=== PATIENT | female | born 1985 | race Hispanic/Latino ===

== ENCOUNTER 2017-08-28 20:32 | Inpatient (IN) | payer OTHER ==
[2017-09-17] MEDS ORDERED: Diphenoxylate HCl/Atropine Tablet PO PRN ×2 (11:59)
[2017-09-17] MEDS ORDERED: Promethazine HCl 25 MG/ML VIAL IM PRN ×2 (11:59→15:25)
[2017-09-17] MEDS ORDERED: LR / Pitocin 40 units/1000 ml 1,000 ML IV PRN (11:59)
[2017-09-17] MEDS ORDERED: HYDROcodone/Acetaminophen 5/325 mg Tablet PO PRN ×2 (11:59)
[2017-09-17] MEDS ORDERED: Ondansetron HCl/PF 4 MG/2 ML Vial IVP PRN ×3 (11:59→20:39)
[2017-09-17] MEDS ORDERED: Misoprostol 200 MCG TAB PR PRN (11:59)
[2017-09-17] MEDS ORDERED: Acetaminophen 500 MG TAB PO PRN (11:59)
[2017-09-17] MEDS ORDERED: Ibuprofen 800 MG TAB PO PRN (11:59)
[2017-09-17] MEDS ORDERED: Lidocaine 1% (PF) 30 ML VIAL SC PRN (11:59)
[2017-09-17] MEDS: Lactated Ringer's 1,000 ML IV SCH ×2 (12:25→15:27)
[2017-09-17 13:06] LABS: Hematocrit 37.7 % (36.0-47.0); Mean Platelet Volume 9.7 fL (7.4-10.4); Red Blood Cell (RBC) Count 3.97 mill/uL (4.20-5.40); White Blood Cell (WBC) Count 8.5 thou/uL (4.8-10.8)
[2017-09-17 13:55] VITALS: BMI 43.2
[2017-09-17] MEDS ORDERED: Fentanyl 4 mcg/Marc 0.1% Cadd 100 ML ONE (14:47)
[2017-09-17] MEDS ORDERED: Bupivacaine 0.75% W/DEXTROSE 8.25% 2 ML AMP ONE (14:56)
[2017-09-17] MEDS ORDERED: Fentanyl 100 MCG/2 ML VIAL ONE (14:56)
[2017-09-17] MEDS ORDERED: Fentanyl 100 MCG/2 ML VIAL I-THECAL ONE (15:25)
[2017-09-17] MEDS ORDERED: Acetaminophen 325 MG TAB PO PRN (15:25)
[2017-09-17] MEDS ORDERED: Bupivacaine 0.75% W/DEXTROSE 8.25% 2 ML AMP NERVE BLCK ONE (15:25)
[2017-09-17] MEDS ORDERED: diphenhydrAMINE HCl 50 MG/ML 1 ML VIAL IVP PRN (15:25)
[2017-09-17] MEDS ORDERED: ePHEDrine/0.9% NaCl/PF SYRINGE 50 mg/10 ml SLOW IVP PRN (15:25)
[2017-09-17] MEDS ORDERED: Eucerin (Mineral Oil/Petrolatum,White) 30 gm Jar TOP PRN (15:25)
[2017-09-17] MEDS ORDERED: Lactated Ringer's 500 ML IV PRN (15:25)
[2017-09-17] MEDS ORDERED: Naloxone HCl 0.4 mg/ml Vial IVP PRN ×2 (15:25)
[2017-09-17] MEDS ORDERED: Communication Order-Pharmacy FS SCH (15:30)
[2017-09-17] MEDS ORDERED: Fentanyl 4mcg/Marcaine 0.1% Cassette 100 ML EPIDURAL SCH (15:30)
[2017-09-17] MEDS ORDERED: LR 500 ML/Oxytocin 10 units 500 ML ONE (16:13)
[2017-09-17] MEDS ORDERED: LR 500 ML/Oxytocin 10 units 500 ML IVPB SCH (17:15)
[2017-09-17] MEDS ORDERED: Benzocaine/Menthol 20-0.5% 60 ML CAN TOP PRN (20:39)
[2017-09-17] MEDS ORDERED: diphenhydrAMINE HCl 25 MG CAP PO PRN (20:39)
[2017-09-17] MEDS ORDERED: Preparation H Ointment 28 GM TUBE PR PRN (20:39)
[2017-09-17] MEDS ORDERED: Milk Of Magnesia 30 ML UDCUP PO PRN (20:39)
[2017-09-17] MEDS ORDERED: Lanolin Ointment 7 GM TUBE TOP PRN (20:39)
[2017-09-17] MEDS ORDERED: Bisacodyl 10 MG SUPP PR PRN (20:39)
[2017-09-17] MEDS ORDERED: FLU VACC QS2017-18 36 mo. & older 0.5 ML SYRINGE IM ONE (21:00)
[2017-09-17] MEDS: LR / Pitocin 40 units/1000 ml 1,000 ML IV SCH (21:33)
[2017-09-17] MEDS ORDERED: Ibuprofen 800 MG TAB PO SCH (22:00)
[2017-09-18] MEDS: Acetaminophen/Codeine 30-300mg Tablet PO PRN ×5 (00:50→21:18)
[2017-09-18] MEDS: Docusate (Surfak) 240 MG CAP PO SCH ×3 (00:52→21:18)
[2017-09-18] MEDS: LR / Pitocin 40 units/1000 ml 1,000 ML IV SCH (03:10)
[2017-09-18 05:31] LABS: Hematocrit 33.1 % (36.0-47.0); Mean Platelet Volume 9.1 fL (7.4-10.4); Red Blood Cell (RBC) Count 3.44 mill/uL (4.20-5.40); White Blood Cell (WBC) Count 12.6 thou/uL (4.8-10.8)
[2017-09-18] MEDS: Ferrous Sulfate 325 MG TAB PO SCH ×2 (08:15→17:07)
[2017-09-18] MEDS ORDERED: Adacel (T-DAP) 0.5 ML VIAL IM ONE (09:00)
[2017-09-18] MEDS: Prenatal Vitamin 1 TAB PO SCH (09:17)
[2017-09-18] MEDS ORDERED: Acetaminophen/Codeine 30-300mg Tablet PO PRN (20:39)
[2017-09-18] MEDS ORDERED: Zolpidem Tartrate 5 MG TAB PO PRN (20:42)
[2017-09-19] MEDS: Ferrous Sulfate 325 MG TAB PO SCH (08:11)
[2017-09-19] MEDS: Prenatal Vitamin 1 TAB PO SCH (08:12)
[2017-09-19] MEDS: Docusate (Surfak) 240 MG CAP PO SCH (08:12)
[2017-09-19] MEDS: Acetaminophen/Codeine 30-300mg Tablet PO PRN ×2 (08:12→13:21)
[2017-09-19 08:16] VITALS: BP 99/53; TEMP 97.9
== END 2017-09-19 14:25 | disposition home or self-care (01) | DRG 775 ==
LOC: EDSTATUS 21:02 → L&D 09-17 11:03 → 3SW 09-17 23:42
PROVIDERS: ADMIT Obstetrics & Gynecology; ATTEND Obstetrics & Gynecology
PROC: 10E0XZZ Delivery of Products of Conception, External Approach (ICD-10-PCS; principal; 2017-09-17)
PROC: 0KQM0ZZ Repair Perineum Muscle, Open Approach (ICD-10-PCS; 2017-09-17)
PROC: 10907ZC Drainage of Amniotic Fluid, Therapeutic from Products of Conception, Via Natural or Artificial Opening (ICD-10-PCS; 2017-09-17)
DX: O24.429 Gestational diabetes mellitus in childbirth, unspecified control (principal); O69.81X0 Labor and delivery complicated by cord around neck, without compression, not applicable or unspecified; O34.211 Maternal care for low transverse scar from previous cesarean delivery; O70.1 Second degree perineal laceration during delivery; Z3A.37 37 weeks gestation of pregnancy; Z37.0 Single live birth; Z23 Encounter for immunization; Z85.71 Personal history of Hodgkin lymphoma
CPT/HCPCS: 36415; 85027; 86780; 87340; 87389; 90471; 90682; 90715; G0008; J3010; J3490; J7120; Q2036

== ENCOUNTER 2018-02-27 20:13 | Emergency (ER) | payer OTHER ==
[2018-02-27 21:09] LABS: Bacteria/HPF None Seen HPF (None Seen); Bilirubin Negative (Negative); Blood, Urine Large (Negative); Glucose, Urine (Dipstick) Negative (Negative); Hyaline Casts/LPF 4-6 HYALINE CAST LPF (0-3 Hyaline); Leukocyte Moderate (Negative); Nitrite Negative (Negative); Pathc Cast-AUWi Flag 1.01 (0-2.49); Protein, Urine (Dipstick) 30 mg/dL (Neg-Trace); Squamous Epithelial 0-3 HPF (0-3); Urobilinogen 0.2 mg/dL (0.2-1.0)
[2018-02-27 21:12] LABS: Clarity Hazy (Clear); RBC/HPF GREATER THAN 50-TNTC HPF (0-3); Yeast-AUWi Flag 116.8 (0-25.0)
[2018-02-27 21:13] LABS: Specific Gravity, Urine 1.005 (1.002-1.036)
[2018-02-27 21:14] LABS: Crystals/HPF None Seen HPF (Negative); Yeast-All Forms None Seen HPF (None Seen)
[2018-02-27 21:18] LABS: #Basophils 0.1 thou/uL (0.0-0.2); #Eosinphils 0.1 thou/uL (0.0-0.7); #Monocytes 0.6 thou/uL (0.11-0.59); #Neutrophils 7.7 thou/uL (1.40-6.50); %Basophils 0.8 % (0.0-1.0); %Eosinophils 1.2 % (0.0-10.0); %Lymphocytes 25.8 % (21.0-51.0); %Monocytes 5.4 % (0.0-10.0); %Neutrophils 66.8 % (42.0-75.0); Hemoglobin 12.7 g/dL (12.0-16.0); Mean Corpuscular HGB CONC 34.5 g/dL (32.0-36.0); Mean Corpuscular Hemoglobin 31.3 pg (27.0-31.0); Mean Corpuscular Volume 90.7 fl (81.0-99.0); Mean Platelet Volume 8.5 fL (7.4-10.4); Platelet Count 226 thou/uL (130-400); RBC Distribution Width 12.3 % (11.5-14.5); Red Blood Cell (RBC) Count 4.06 mill/uL (4.20-5.40); White Blood Cell (WBC) Count 11.5 thou/uL (4.8-10.8)
[2018-02-27 21:36] LABS: ALT (SGPT) 16 U/L (8-55); AST (SGOT) 12 U/L (5-34); Alkaline Phosphatase 79 U/L (40-150); Anion Gap 14 mmol/L (10-20); BUN (Urea Nitrogen) 11 mg/dL (7.0-18.7); Bilirubin, Total 0.2 mg/dL (0.2-1.2); Calc. Creatinine Clearance 0 mL/min (70-130); Calcium 9.5 mg/dL (7.8-10.44); Carbon Dioxide 20 mmol/L (22-29); Chloride 106 mmol/L (98-107); Estimated GFR-MDRD Greater than 90; Globulin 3.5 g/dL (2.4-3.5); Glucose 123 mg/dL (70-105); Potassium 3.7 mmol/L (3.5-5.1); Protein, Total 7.5 g/dL (6.0-8.3); Sodium 136 mmol/L (136-145)
--- NOTE | 2018-02-27 23:39 | ULT ---
TRANSVAGINAL PELVIC ULTRASOUND 02/27/18 INDICATION: with vaginal bleeding. TECHNIQUE: Soriano scale, color doppler, vascular duplex with spectral analysis is performed of the pelvis using a transvaginal approach. FINDINGS: There is a live intrauterine gestation with crown-rump length of 2.3 cm given estimated gestational a ge of 9 weeks and 6 days. Cardiac activity is associated with the pole measuring 163 beats per minute. There is a focus of subchorionic hemorrhage seen along the inferior and anterior aspect of th e gestational sac measuring up to 2.2 cm. This falls less than 25% of the circumference of the gestat ional sac. There is a 2.2 cm cyst within the right ovary. There is normal flow to both ovaries. No fr ee fluid is demonstrated. IMPRESSION: 1. Live intrauterine gestation with small subchorionic hemorrhage seen along the anterior and in ferior margin of the gestational sac. Would recommend continued sonographic and clinical followup. 2. Right ovarian cyst. 3. No large amount of free fluid seen. POS: [facility]
== END 2018-02-27 23:59 | disposition home or self-care (01) ==
LOC: ERS 20:13
DX: O20.8 Other hemorrhage in early pregnancy (principal); Z3A.09 9 weeks gestation of pregnancy
CPT/HCPCS: 36415; 76856; 80053; 81003; 81015; 84702; 85025; 86900; 86901

== ENCOUNTER 2018-09-21 11:22 | Inpatient (IN) | payer BC, OTHER ==
[2018-09-21 11:48] VITALS: BMI 42.7
[2018-09-21] MEDS ORDERED: Docusate 100 MG CAP PO PRN (11:56)
[2018-09-21] MEDS ORDERED: Zolpidem Tartrate 5 MG TAB PO PRN ×2 (11:56→18:10)
[2018-09-21] MEDS ORDERED: Ondansetron PF 4 MG/2 ML Vial IVP PRN ×2 (11:56→18:10)
[2018-09-21] MEDS ORDERED: Butorphanol Tartrate 1 MG/ML VIAL SLOW IVP PRN (11:56)
[2018-09-21] MEDS ORDERED: Acetaminophen 500 MG TAB PO PRN (11:56)
[2018-09-21] MEDS ORDERED: Promethazine HCl 25 MG/ML VIAL IM PRN (11:56)
[2018-09-21] MEDS ORDERED: NS / Oxytocin 40 units/1000ml 1,000 ML IV PRN (11:59)
[2018-09-21] MEDS ORDERED: HYDROcodone/Acetaminophen 5/325 mg Tablet PO PRN ×2 (11:59)
[2018-09-21] MEDS ORDERED: Diphenoxylate HCl/Atropine Tablet PO PRN ×2 (11:59)
[2018-09-21] MEDS ORDERED: Lidocaine 1% (PF) 30 ML VIAL SC PRN (11:59)
[2018-09-21] MEDS ORDERED: Misoprostol 200 MCG TAB PR PRN (11:59)
[2018-09-21 12:14] LABS: Hemoglobin 12.9 g/dL (12.0-16.0); Mean Corpuscular HGB CONC 33.4 g/dL (32.0-36.0); Mean Corpuscular Hemoglobin 31.4 pg (27.0-31.0); Mean Corpuscular Volume 93.8 fL (78.0-98.0); Mean Platelet Volume 10.6 fL (7.4-10.4); Platelet Count 146 thou/uL (130-400); RBC Distribution Width 13.4 % (11.5-14.5); Red Blood Cell (RBC) Count 4.12 mill/uL (4.20-5.40); White Blood Cell (WBC) Count 7.8 thou/uL (4.8-10.8)
[2018-09-21] MEDS ORDERED: Fentanyl 4 mcg/Bup 0.1% Cadd 100 ML ONE (12:16)
[2018-09-21] MEDS ORDERED: ePHEDrine/0.9% NaCl/PF SYRINGE 50 mg/10 ml SLOW IVP PRN (13:17)
[2018-09-21] MEDS ORDERED: Eucerin (Mineral Oil/Petrolatum,White) 30 gm Jar TOP PRN (13:17)
[2018-09-21] MEDS ORDERED: Naloxone HCl 0.4 mg/ml Vial IVP PRN ×2 (13:17)
[2018-09-21] MEDS ORDERED: Lactated Ringer's 500 ML IV PRN (13:17)
[2018-09-21 13:29] LABS: HBSAg Index 0.19 S/CO (0-0.99); Hep B Surf Ag Non-Reactive S/CO (NonReactive); Syphilis Antibody Nonreactive (Nonreactive); Syphilis Antibody Index 0.03 S/CO (<1.00 Non-Reactive)
[2018-09-21] MEDS ORDERED: Fentanyl 4 mcg/Bupivacaine 0.1% Cassette 100 ML EPIDURAL SCH (13:30)
[2018-09-21] MEDS ORDERED: Communication Order-Pharmacy FS SCH (13:30)
[2018-09-21] MEDS: Lactated Ringer's 1,000 ML IV SCH (16:41)
[2018-09-21] MEDS ORDERED: Misoprostol 200 MCG TAB VAG PRN (18:10)
[2018-09-21] MEDS ORDERED: Preparation H Ointment 28 GM TUBE PR PRN (18:10)
[2018-09-21] MEDS ORDERED: Milk Of Magnesia 30 ML UDCUP PO PRN (18:10)
[2018-09-21] MEDS ORDERED: Bisacodyl 10 MG SUPP PR PRN (18:10)
[2018-09-21] MEDS ORDERED: Lanolin Ointment 7 GM TUBE TOP PRN (18:10)
[2018-09-21] MEDS ORDERED: diphenhydrAMINE 25 MG CAP PO PRN (18:10)
[2018-09-21] MEDS ORDERED: Benzocaine/Menthol 20-0.5% 60 ML CAN TOP PRN (18:10)
[2018-09-21] MEDS ORDERED: NS / Oxytocin 40 units/1000ml 1,000 ML IV SCH (18:15)
[2018-09-21] MEDS: Docusate Calcium (SURFAK) 240 MG CAP PO SCH (20:02)
[2018-09-21] MEDS: traMADol HCl 50 MG TAB PO PRN (20:02)
[2018-09-22] MEDS: Lactated Ringer's 1,000 ML IV SCH (02:35)
[2018-09-22 06:13] LABS: Hemoglobin 11.5 g/dL (12.0-16.0); Mean Corpuscular HGB CONC 32.9 g/dL (32.0-36.0); Mean Corpuscular Hemoglobin 31.1 pg (27.0-31.0); Mean Corpuscular Volume 94.4 fL (78.0-98.0); Mean Platelet Volume 10.3 fL (7.4-10.4); Platelet Count 131 thou/uL (130-400); RBC Distribution Width 13.5 % (11.5-14.5); Red Blood Cell (RBC) Count 3.69 mill/uL (4.20-5.40); White Blood Cell (WBC) Count 7.9 thou/uL (4.8-10.8)
[2018-09-22] MEDS ORDERED: Bupivacaine/Epinephrine 0.25% 30 ML VIAL ONE (07:56)
[2018-09-22] MEDS: Ferrous Sulfate 325 MG TAB PO SCH ×2 (08:18→16:53)
[2018-09-22] MEDS ORDERED: Adacel (T-DAP) 0.5 ML VIAL IM ONE (09:00)
[2018-09-22] MEDS ORDERED: Prenatal Vitamin 1 TAB PO SCH (09:00)
[2018-09-22] MEDS: Docusate Calcium (SURFAK) 240 MG CAP PO SCH (09:12)
[2018-09-22] MEDS: traMADol HCl 50 MG TAB PO PRN (13:32)
[2018-09-22 18:04] VITALS: BP 116/73; TEMP 98.2
== END 2018-09-22 19:35 | disposition home or self-care (01) | DRG 807 ==
LOC: L&D 11:22 → 3SW 22:40 → EDSTATUS 10-03 11:20
PROVIDERS: ADMIT Obstetrics & Gynecology; ATTEND Obstetrics & Gynecology
PROC: 10E0XZZ Delivery of Products of Conception, External Approach (ICD-10-PCS; principal; 2018-09-21)
DX: O34.219 Maternal care for unspecified type scar from previous cesarean delivery (principal); Z37.0 Single live birth; O24.429 Gestational diabetes mellitus in childbirth, unspecified control; Z3A.38 38 weeks gestation of pregnancy
CPT/HCPCS: 36415; 51702; 85027; 86780; 86850; 86900; 86901; 87340; J2001; J2405; J2550

== ENCOUNTER 2023-03-29 20:31 | Emergency (ER) | payer MEDICAID, SELFPAY ==
[2023-03-29] MEDS ORDERED: Ketorolac Tromethamine 30 MG/ML VIAL ONE (20:58)
[2023-03-29] MEDS ORDERED: diphenhydrAMINE 50 MG/ML VIAL ONE (20:58)
[2023-03-29] MEDS ORDERED: Metoclopramide HCl 10 MG/2 ML VIAL ONE (20:58)
[2023-03-29] MEDS ORDERED: Acetaminophen 500 MG TAB ONE (20:59)
[2023-03-29 21:19] LABS: BHCG - Serum Negative (NEGATIVE); Pregs Control Background? CLEAR/WHITE (CLR/WHITE); Pregs Control Bar Appear? YES (CONTROL BAR)
[2023-03-29 21:20] LABS: #Basophils 0.1 thou/uL (0.0-0.2); #Eosinphils 0.1 thou/uL (0.0-0.7); #Lymphocytes 4.2 thou/uL (1.20-3.40); #Monocytes 0.7 thou/uL (0.11-0.59); #Neutrophils 7.4 thou/uL (1.40-6.50); %Basophils 0.8 % (0.0-1.0); %Eosinophils 0.8 % (0.0-10.0); %Lymphocytes 33.3 % (21.0-51.0); %Monocytes 5.8 % (0.0-10.0); %Neutrophils 59.3 % (42.0-75.0); Hemoglobin 14.1 g/dL (12.0-16.0); Mean Corpuscular HGB CONC 32.8 g/dL (32.0-36.0); Mean Corpuscular Hemoglobin 29.8 pg (27.0-31.0); Mean Corpuscular Volume 90.8 fl (78.0-98.0); Mean Platelet Volume 9.5 fL (7.4-10.4); Platelet Count 268 10x3/uL (130-400); RBC Distribution Width 12.7 % (11.5-14.5); Red Blood Cell (RBC) Count 4.74 mill/uL (4.20-5.40); White Blood Cell (WBC) Count 12.5 10x3/uL (4.8-10.8)
[2023-03-29 21:43] LABS: Anion Gap 15 mmol/L (10-20); BUN (Urea Nitrogen) 11 mg/dL (7.0-18.7); Calc. Creatinine Clearance 0 mL/min (70-130); Calcium 10.6 mg/dL (7.8-10.44); Carbon Dioxide 26 mmol/L (22-29); Chloride 102 mmol/L (98-107); Estimated GFR 99; Glucose 111 mg/dL (70-105); Potassium 4.1 mmol/L (3.5-5.1); Sodium 139 mmol/L (136-145)
== END 2023-03-29 21:58 | disposition home or self-care (01) ==
LOC: ERS 20:31
DX: G44.209 Tension-type headache, unspecified, not intractable (principal); D72.829 Elevated white blood cell count, unspecified; E11.9 Type 2 diabetes mellitus without complications
CPT/HCPCS: 70450; 80048; 84703; 85025; 96374; 96375; J1200; J1885; J2765

== ENCOUNTER 2024-02-12 15:27 | Emergency (ER) | payer SELFPAY ==
[2024-02-12 16:27] LABS: #Basophils 0.1 thou/uL (0.0-0.2); #Eosinphils 0.1 thou/uL (0.0-0.7); #Monocytes 0.6 thou/uL (0.11-0.59); #Neutrophils 8.6 thou/uL (1.40-6.50); %Basophils 0.4 % (0.0-1.0); %Eosinophils 0.5 % (0.0-10.0); %Lymphocytes 26.2 % (21.0-51.0); %Neutrophils 67.6 % (42.0-75.0); Hemoglobin 11.6 g/dL (12.0-16.0); Mean Corpuscular HGB CONC 33.1 g/dL (32.0-36.0); Mean Corpuscular Hemoglobin 29.7 pg (27.0-31.0); Mean Corpuscular Volume 89.7 fl (78.0-98.0); Platelet Count 264 10x3/uL (130-400); RBC Distribution Width 14.2 % (11.5-14.5); White Blood Cell (WBC) Count 12.7 10x3/uL (4.8-10.8)
[2024-02-12 16:48] LABS: ALT (SGPT) 10 U/L (8-55); AST (SGOT) 12 U/L (5-34); Albumin 4.2 g/dL (3.5-5.0); Alkaline Phosphatase 74 U/L (40-110); Anion Gap 12 mmol/L (10-20); BUN (Urea Nitrogen) 16 mg/dL (7.0-18.7); Bilirubin, Total 0.2 mg/dL (0.2-1.2); Calc. Creatinine Clearance 0 mL/min (70-130); Calcium 9.8 mg/dL (7.8-10.44); Carbon Dioxide 25 mmol/L (22-29); Chloride 104 mmol/L (98-107); Estimated GFR 103; Globulin 3.5 g/dL (2.4-3.5); Glucose 77 mg/dL (70-105); Potassium 4.3 mmol/L (3.5-5.1); Protein, Total 7.7 g/dL (6.0-8.3); Sodium 137 mmol/L (136-145)
[2024-02-12 17:19] LABS: Bilirubin Negative (Negative); Blood, Urine 3+ (Negative); CAUTI Indications for Culture Pelvic or flank pain; Clarity Clear (Clear); Glucose, Urine (Dipstick) Normal (Negative); Ketone, Urine Negative (Negative); Leukocyte 75 Leu/uL (Negative); Nitrite Negative (Negative); Protein, Urine (Dipstick) Negative (Neg-Trace); RBC/HPF Greater than 50 HPF (0-3); Specific Gravity, Urine 1.007 (1.002-1.036); Squamous Epithelial 0-3 HPF (0-3); Urobilinogen Normal mg/dL (Less than 2)
[2024-02-12 17:20] LABS: Bacteria/HPF 1+ HPF (None Seen)
[2024-02-12 17:23] LABS: Urine Culture Reflex No No
== END 2024-02-12 17:52 | disposition home or self-care (01) ==
LOC: ERS 15:27
DX: O9A.211 Injury, poisoning and certain other consequences of external causes complicating pregnancy, first trimester (principal); S39.92XA Unspecified injury of lower back, initial encounter; O09.91 Supervision of high risk pregnancy, unspecified, first trimester; O20.9 Hemorrhage in early pregnancy, unspecified; O24.111 Pre-existing type 2 diabetes mellitus, in pregnancy, first trimester; O10.911 Unspecified pre-existing hypertension complicating pregnancy, first trimester; W18.2XXA Fall in (into) shower or empty bathtub, initial encounter; Y93.89 Activity, other specified; Y92.002 Bathroom of unspecified non-institutional (private) residence as the place of occurrence of the external cause; Z3A.09 9 weeks gestation of pregnancy; Z55.6 Problems related to health literacy; Z79.84 Long term (current) use of oral hypoglycemic drugs
CPT/HCPCS: 36415; 76801; 80053; 81001; 85025; 86900; 86901